=== PATIENT | female | born 1955 | race Asian ===

== ENCOUNTER 2017-05-02 13:22 | Inpatient (IN) | payer BC, OTHER ==
[~2017-05-02] VITALS: Ht 162.6 cm; Wt 78.0 kg
--- NOTE | 2017-05-02 15:35 | ERA ---
ER Documentation Chief Complaint Date/Time DATE: 05/02/17 TIME: 15:34 Chief Complaint Chest pain and shortness of breath HPI . The patient is 62-year-old female, presenting to the ER because of shortness of breath and substernal chest pain intermittently for the last 3 months, worse for the last couple days She was seen by her physician today who sent her to the ER because of abnormal EKG. There is no aggravating or relieving factor, she denies chest pain with exertion/vomiting/diaphoresis, abdominal pain, vomiting, dysuria, diarrhea. She does not smoke nor drink Past medical history: Dyslipidemia Past surgical history: Hysterectomy, abdominoplasty, breast augmentation ROS All systems reviewed and are negative except as per history of present illness. Medications Home Meds No Active Prescriptions or Reported Meds Allergies Allergies: Coded Allergies: No Known Allergy (Unverified , 05/02/17) PMhx/Soc History of Surgery: Yes (HYSTERECTOMY) Anesthesia Reaction: No Hx Neurological Disorder: No Hx Respiratory Disorders: No Hx Cardiac Disorders: No Hx Psychiatric Problems: No Hx Miscellaneous Medical Probl: No Hx Alcohol Use: No Hx Substance Use: No Hx Tobacco Use: No Physical Exam Vitals Vital Signs Date Time Temp Pulse Resp B/P Pulse Ox O2 Delivery O2 Flow Rate FiO2 05/02/17 17:47 98.4 70 18 142/80 99 Room Air 05/02/17 17:41 Nasal Cannula 2 05/02/17 16:43 68 18 150/71 99 Room Air 05/02/17 13:27 98.1 88 18 180/80 99 Physical Exam Const: No acute distress. Head: Atraumatic. Eyes: Normal Conjunctiva. ENT: Normal External Ears, Nose and Mouth. Neck: Full range of motion. No meningismus. Resp: Clear to auscultation bilaterally. Cardio: Regular rate and rhythm. Abd: Soft, non distended, normal bowel sounds, non tender. Skin: No petechiae or rashes. Back: No midline or flank tenderness. Ext: No cyanosis, or edema. Neur: Awake and alert. No focal deficit Psych: Normal Mood and Affect. Result Diagram: 05/02/17 1550 05/02/17 1550 Results 24 hrs Laboratory Tests Test 05/02/17 15:50 White Blood Count 5.810^3/ul Red Blood Count 4.7810^6/ul Hemoglobin 14.3g/dl Hematocrit 43.5% Mean Corpuscular Volume 91.0fl Mean Corpuscular Hemoglobin 29.9pg Mean Corpuscular Hemoglobin Concent 32.9g/dl Red Cell Distribution Width 13.2% Platelet Count 15877^3/UL Mean Platelet Volume 9.6fl Neutrophils % 44.2% Lymphocytes % 39.7% Monocytes % 13.4% Eosinophils % 1.9% Basophils % 0.3% Nucleated Red Blood Cells % 0.0/100WBC Neutrophils # 2.510^3/ul Lymphocytes # 2.310^3/ul Monocytes # 0.810^3/ul Eosinophils # 0.110^3/ul Basophils # 0.010^3/ul Nucleated Red Blood Cells # 0.010^3/ul Prothrombin Time 12.4Sec Prothrombin Time Ratio 1.0 INR International Normalized Ratio 0.92 Activated Partial Thromboplast Time 31.6Sec D-Dimer 376.29ng/ml D-Dimer Comment Sodium Level 145mmol/L Potassium Level 4.0mmol/L Chloride Level 109mmol/L Carbon Dioxide Level 27mmol/L Anion Gap 13 Blood Urea Nitrogen 16mg/dl Creatinine 0.66mg/dl Glucose Level 87mg/dl Calcium Level 10.3mg/dl Troponin I < 0.012ng/ml B-Type Natriuretic Peptide 72PG/ML Current Medications Medications (Trade) Dose Ordered Sig/Nataly Route PRN Reason Start Time Stop Time Status Last Admin Dose Admin Aspirin (Aspirin) 325 mg ONCE ONCE PO 05/02/17 17:30 05/02/17 17:31 DC 05/02/17 17:24 Nitroglycerin (Nitroglycerin 2% Oint) 1 inch ONCE ONCE TD 05/02/17 17:30 05/02/17 17:31 DC 05/02/17 17:24 Procedures/[place] [id number] Radiology Main Line: [phone] DIAGNOSTIC IMAGING REPORT Patient: SHARMAINE DAMON : 1955 Age: 62 Sex: F MR #: [id number] DOS: 05/02/17 1547 Ordering MD: LAVON CUNNINGHAM MD Location: E/R Room/Bed: PROCEDURE: XR Chest. CLINICAL INDICATION: Shortness of breath TECHNIQUE: Single frontal chest x-ray. COMPARISON: None available FINDINGS: The lungs are clear. No focal opacification is seen. No pneumothorax or pleural effusion is seen. The cardiomediastinal silhouette is unremarkable. The osseous structures are grossly unremarkable. IMPRESSION: No evidence of acute cardiopulmonary disease. RPTAT: JJ .Eliud Frost MD, MD Date Time Electronically viewed and signed by .Eliud Frost MD, on 05/02/2017 16:58 .A/ CC: LAVON CUNNINGHAM MD EKG: At 1327 hrs. Read by emergency physician Rate/Rhythm: Normal Sinus Rhythm 72 beats/min QRS, ST, T-waves: No ST elevation, Inferolateral T abnormality Impression: Abnormal EKG EKG: At 1701 hrs. Read by emergency physician Rate/Rhythm: Normal Sinus Rhythm 61 beats/min QRS, ST, T-waves: No ST elevation, Inferolateral T abnormality Impression: Abnormal EKG MEDICAL MAKING DECISION: The patient is a 62-year-old female, presenting with acute chest pain of unclear etiology with abnormal EKG that is concerning for acute ACS. She was treated with aspirin 325 mg p.o., 1 inch of nitroglycerin ointment to the chest wall with good response The differential diagnoses considered include but are not limited to acute coronary syndrome, acute myocardial infarction, pericarditis, pulmonary embolism , aortic dissection, pneumonia, pleural effusion, pneumothorax, GERD, chest wall pain. Departure Diagnosis: Primary Impression: Chest pain Condition: Stable Comments I discussed the findings with the patient. I discussed the patient with her physician Dr. Verde who was made aware of the lab, the treatment, the patient condition. The patient is admitted to [facility] at 5:30 pm The patient's blood pressure was elevated (>120/80) but appears stable without evidence of hypertension emergency or urgency. The patient was counseled about the risks of hypertension and urged to pursue outpatient monitoring and therapy within a week with their primary care physician. LAVON CUNNINGHAM MD May 02, 2017 15:35
[2017-05-02 16:02] LABS: BASOPHILS % 0.3 % (0.0-2.0); EOSINOPHILS # 0.1 10^3/ul (0.0-0.5); EOSINOPHILS % 1.9 % (0.0-7.0); HEMATOCRIT 43.5 % (37.0-47.0); HEMOGLOBIN 14.3 g/dl (12.0-16.0); LYMPHOCYTES # 2.3 10^3/ul (0.8-2.9); LYMPHOCYTES % 39.7 % (15.0-51.0); MEAN CORPUSCULAR HEMOGLOBIN 29.9 pg (29.0-33.0); MEAN CORPUSCULAR HGB CONC 32.9 g/dl (32.0-37.0); MEAN PLATELET VOLUME 9.6 fl (7.4-10.4); MONOCYTE # 0.8 10^3/ul (0.3-0.9); MONOCYTES % 13.4 % (0.0-11.0); NEUTROPHIL # 2.5 10^3/ul (1.6-7.5); NEUTROPHILS % 44.2 % (39.0-77.0); PLATELET COUNT 279 10^3/UL (140-415); RED BLOOD COUNT 4.78 10^6/ul (4.20-5.40); RED CELL DISTRIBUTION WIDTH 13.2 % (11.5-14.5); WHITE BLOOD COUNT 5.8 10^3/ul (4.8-10.8)
[2017-05-02 16:19] LABS: INR 0.92; PROTIME 12.4 Sec (12.2-14.2)
[2017-05-02 16:20] LABS: ANION GAP 13 (8-16); BLOOD UREA NITROGEN 16 mg/dl (7-20); CALCIUM 10.3 mg/dl (8.4-10.2); CARBON DIOXIDE 27 mmol/L (21-31); CHLORIDE 109 mmol/L (97-110); CREATININE 0.66 mg/dl (0.44-1.00); GLUCOSE 87 mg/dl (70-220); PARTIAL THROMBOPLASTIN TIME 31.6 Sec (25.0-35.0); SODIUM 145 mmol/L (135-144)
[2017-05-02 16:28] LABS: D-DIMER 376.29 ng/ml (<460)
[2017-05-02 16:33] LABS: B-TYPE NATRIURETIC PEPTIDE 72 PG/ML (0-125); TROPONIN-I < 0.012 ng/ml (0.00-0.12)
--- NOTE | 2017-05-02 16:58 | RADRPT ---
PROCEDURE: XR Chest. CLINICAL INDICATION: Shortness of breath TECHNIQUE: Single frontal chest x-ray. COMPARISON: None available FINDINGS: The lungs are clear. No focal opacification is seen. No pneumothorax or pleural effusion is seen. The cardiomediastinal silhouette is unremarkable. The osseous structures are grossly unremarkable. IMPRESSION: No evidence of acute cardiopulmonary disease. RPTAT: JJ .Eliud Frost MD, MD Date Time Electronically viewed and signed by .Eliud Frost MD, on 05/02/2017 16:58 .A/
[2017-05-02] MEDS ORDERED: NITROGLYCERIN 2% 1 GM OINT PKT TD ONE (17:30)
[2017-05-02] MEDS ORDERED: ASPIRIN 325 MG TAB PO ONE (17:30)
[2017-05-02] MEDS ORDERED: morphine 2 MG INJ IV PRN (21:00)
[2017-05-02] MEDS ORDERED: ONDANSETRON 4 MG INJ IV PRN (21:00)
[2017-05-02] MEDS ORDERED: ACETAMINOPHEN 325 MG TAB PO PRN (21:00)
[2017-05-02 22:50] VITALS: TEMP 98.4
[2017-05-03] VITALS (8 sets, daily range): BP systolic 107–123; BP diastolic 55–63; PULSE 69–79; RESP 16–18; Ht 162.6 cm; Wt 78.0 kg
[2017-05-03] MEDS: ATORVASTATIN 40 MG TAB PO SCH ×2 (01:15→09:00)
--- NOTE | 2017-05-03 04:57 | HP ---
DATE OF ADMISSION: 05/02/2017 CHIEF COMPLAINT: Shortness of breath. HISTORY OF PRESENTING ILLNESS: The patient presents to the emergency room at [facility] shortness of breath which she states has been on and off for the last several months, that this o ccurs to her when she is walking or when she gets angry and is affiliated with some central chest ti ghtness and increasing fatigue. PAST MEDICAL HISTORY: Significant for hypertension. MEDICATIONS: As an outpatient, nil. ALLERGIES: Nil. SOCIAL HISTORY: The patient lives at home in [place] with her friend. Independent of activities of daily living, continues to drive. Works running a [employer], does not use a cane or walker. FAMILY HISTORY: Noncontributory. REVIEW OF SYSTEMS: Five systems reviewed and found not to be revealing. PHYSICAL EXAMINATION: VITAL SIGNS: Reviewed and showed slight hypertension. GENERAL: Pleasant woman in no acute distress, alert and oriented x3. HEENT: Normocephalic, atraumatic without evident scleral icterus, perioral cyanosis. Mucous membra garett are moist. NECK: Soft and supple without masses. No evidence of jugular venous distention or carotid bruits. CHEST: Clear to auscultation and percussion bilaterally. HEART: Regular rate and rhythm. S1, S2. No added sounds. ABDOMEN: Soft, nontender, nondistended without palpable hepatosplenomegaly. EXTREMITIES: Without clubbing, cyanosis or edema. SKIN: Without rashes. NEUROLOGIC: Grossly intact. LABORATORY STUDIES: Reviewed and remarkable for negative troponin. Chest x-ray is normal. EKG rev eals sinus rhythm with T-wave inversions in II, III, aVF, V4, 5 and 6. ASSESSMENT AND PLAN: 1. Cardiac: The patient with chest pain and shortness of breath, unclear etiology. Obtain serial troponins, echocardiogram and stress test. We will wait for the results. 2. Prophylaxis with TEDs and sequential compression devices. Dictated By: YISEL HERNANDEZ MD RER/NTS Conf#: [id number] DID#: [id number]
[2017-05-03] MEDS ORDERED: ASPIRIN 81 MG TAB PO SCH (09:00)
[2017-05-03 09:42] LABS: CHOL/HDL RATIO 6.8 RATIO
--- NOTE | 2017-05-03 10:50 | PN ---
Date/Time of Note Date/Time of Note DATE: 05/03/17 TIME: 10:39 Assessment/Plan VTE Prophylaxis VTE Prophylaxis Intervention: SCD's Assessment/Plan Assessment/Plan 62 yo female with: 1. Chest pain and SOB, CE negative and EKG with no acute ischemic changes. D Dimer wnl Stress test this AM and 2D echo ordered, results pending On RA and stable Continue ASA, B block and statins 2. Hyperlipidemia: agree with Lipitor Prophylaxis; DVT ppx with sequential compression devices and Pepcid for GI ppx Disposition: D/c home if stress test negative. Subjective 24 Hr Interval Summary Free Text/Dictation Patient doing well and No chest pain but complaining of HENNESSY Stress test today and 2D echo D/c plan home if negative stress test Exam/Review of Systems Vital Signs Vitals Vital Signs Date Time Temp Pulse Resp B/P Pulse Ox O2 Delivery O2 Flow Rate FiO2 05/03/17 09:20 98.6 75 18 111/63 96 Room Air 05/02/17 17:41 2 Exam Constitutional: alert, oriented, well developed Respiratory: clear to auscultation, normal air movement Cardiovascular: nl pulses, regular rate and rhythm Gastrointestinal: non-tender, soft Musculoskeletal: nl extremities to inspection Extremities: normal pulses Neurological: [employer] COMM[employer]ION[employer] II-XII intact, nl mental status, nl speech, nl strength Results Result Diagram: 05/02/17 1550 05/02/17 1550 Results 24 hrs Laboratory Tests Test 05/02/17 15:50 05/02/17 21:47 05/03/17 05:44 White Blood Count 5.8 Red Blood Count 4.78 Hemoglobin 14.3 Hematocrit 43.5 Mean Corpuscular Volume 91.0 Mean Corpuscular Hemoglobin 29.9 Mean Corpuscular Hemoglobin Concent 32.9 Red Cell Distribution Width 13.2 Platelet Count 279 Mean Platelet Volume 9.6 Neutrophils % 44.2 Lymphocytes % 39.7 Monocytes % 13.4 H Eosinophils % 1.9 Basophils % 0.3 Nucleated Red Blood Cells % 0.0 Neutrophils # 2.5 Lymphocytes # 2.3 Monocytes # 0.8 Eosinophils # 0.1 Basophils # 0.0 Nucleated Red Blood Cells # 0.0 Prothrombin Time 12.4 Prothrombin Time Ratio 1.0 INR International Normalized Ratio 0.92 Activated Partial Thromboplast Time 31.6 D-Dimer 376.29 D-Dimer Comment Sodium Level 145 H Potassium Level 4.0 Chloride Level 109 Carbon Dioxide Level 27 Anion Gap 13 Blood Urea Nitrogen 16 Creatinine 0.66 Glucose Level 87 Calcium Level 10.3 H Troponin I < 0.012 < 0.012 < 0.012 B-Type Natriuretic Peptide 72 Triglycerides Level 131 Cholesterol Level 245 H LDL Cholesterol, Calculated 183 HDL Cholesterol 36 Cholesterol/HDL Ratio 6.8 Medications Medications Current Medications Aspirin (Aspirin) 81 mg DAILY PO Last administered on 05/03/17 09:19; Admin Dose 81 MG; Start 05/03/17 at 09:00 Carvedilol (Coreg) 6.25 mg Q12 PO Last administered on 05/03/17 09:19; Admin Dose 6.25 MG; Start 05/02/17 at 21:00 Hydralazine HCl (Apresoline) 25 mg Q6H PRN PO sbp>160; Start 05/02/17 at 21:00 Atorvastatin Calcium (Lipitor) 40 mg DAILY PO ; Start 05/02/17 at 21:00 Acetaminophen (Tylenol Tab) 650 mg Q4H PRN PO pain/fever; Start 05/02/17 at 21 :00 Morphine Sulfate (morphine) 2 mg Q2H PRN IV pain Last administered on 00:26; Admin Dose 2 MG; Start 05/02/17 at 21:00 Ondansetron HCl (Zofran Inj) 4 mg Q4H PRN IV nausea Last administered on 00:26; Admin Dose 4 MG; Start 05/02/17 at 21:00 JESÚS ROCHE May 03, 2017 10:50
[2017-05-03] MEDS ORDERED: REGADENOSON 0.4 MG/5 ML SYG ONE (11:10)
--- NOTE | 2017-05-03 12:38 | RADRPT ---
Echocardiogram Report Patient Name: SHARMAINE DAMON Gender: Female Date: 1955 Study Date: 03-May-2017 Manipulative Therapy Specialist: Perla [facility] Location: [facility] Ref. Physician: YISEL HERNANDEZ Quality: Adequate Procedures: Transthoracic echocardiogram with complete 2D, M-Mode, and doppler examination. Indications: Chest Pain. 2D/M Mode Doppler Measurement Value Normal Ranges Measurement Value Normal Ranges LVIDd 2D 3.8 3.5 - 5.6 cm AV Peak Lexx 1.3 m/sec LVIDs 2D 2.3 2.1 - 4.1 cm AV Peak PG 7.0 mmHg FS 2D 39.8 % LVOT Peak Lexx 1.1 m/sec LVPWd 2D 1.3 0.6 - 1.1 cm LVOT Peak PG 5.0 mmHg IVSd 2D 1.3 0.6 - 1.1 cm MV E Peak Lexx 0.6 m/sec IVS/LVPW 2D 1.0 MV A Peak Lexx 0.9 m/sec AoR Diam 2D 2.8 2.0 - 3.7 cm MV E/A 0.6 LA/Ao 2D 1 0 - 1 MV Decel Time 222 msec EDV 2D 54.4 cm3 MV E/A 0.6 ESV 2D 11.9 cm3 TR Peak Lexx 2.5 m/sec LA Dimen 2D 3.7 2.3 - 4.0 cm TR Peak PG 24.0 mmHg RVSP 27.0 mmHg Findings Left Ventricle: Normal left ventricular systolic function. Normal left ventricular cavity size. Moderate concentric left ventricular hypertrophy. Ejection fraction is visually estimated at 65 %. Tissue Doppler/Mitral Doppler indices are consistent with impaired relaxation (Stage I diastolic dysfunction). Right Ventricle: Normal right ventricular size. Normal right ventricular systolic function. Left Atrium: The left atrium is normal in size. Right Atrium: The right atrium is normal in size. Mitral Valve: Normal appearance and function of the mitral valve with trace physiologic regurgitation. Aortic Valve: Normal appearance of the aortic valve. No significant aortic stenosis or insufficiency. Tricuspid Valve: Normal appearance and function of the tricuspid valve with trace physiologic regurgitation. Estimated peak PA systolic pressure 27 mmHg. Pulmonic Valve: Pulmonic valve not well visualized. There is trace pulmonic regurgitation. Pericardium: Normal pericardium with no significant pericardial effusion. Aorta: Normal aortic root. IVC: Normal size and normal respiratory collapse consistent with normal right atrial pressure. Conclusions 1.Normal left ventricular systolic function. Normal left ventricular cavity size. Moderate concentric left ventricular hypertrophy. Ejection fraction is visually estimated at 65 %. Tissue Doppler/Mitral Doppler indices are consistent with impaired relaxation (Stage I diastolic dysfunction). 2.Normal right ventricular size. Normal right ventricular systolic function. 3.The left atrium is normal in size. 4.The right atrium is normal in size. 5.No significant valvular stenosis or regurgitation seen. 6.Normal pericardium with no significant pericardial effusion. Electronically Signed By: Sanya Fonseca 03-May-2017 12:37:56 -0700 Patient Name: SHARMAINE DAMON Study Date: 03-May-[id number]
--- NOTE | 2017-05-03 14:32 | RADRPT ---
PROCEDURE: Lexiscan myocardial perfusion study CLINICAL INDICATION: 62 -year-old patient complaining of chest pain. TECHNIQUE: Lexiscan 0.4 mg intravenously separate acquisition gated myocardial perfusion SPECT usi ng Tc 99m Myoview 27.2 mCi intravenously at stress and Tc-99m Myoview, 9.2 mCi intravenously at rest was performed using the rest/stress sequence. Poststress Myoview SPECT images were obtained in the supine position. COMPARISON: No prior studies. FINDINGS: Perfusion images reveal no evidence of perfusion defects. Lexiscan post stress gated SPECT images demonstrate no wall motion abnormalities. IMPRESSION: 1. Normal study with no evidence of perfusion defects or wall motion abnormalities. 2. The left ventricle ejection fraction at stress is greater than 70%. A call report was made to Dr. Fonseca at 02:30 p.m. on May 03, 2017. RPTAT: HH .Serenity Medina MD, MD Date Time Electronically viewed and signed by .Serenity Medina MD, MD on 05/03/2017 14:31 .L/
[2017-05-03] MEDS ORDERED: ASPI81TA3 PO (14:43)
[2017-05-03] MEDS ORDERED: ATOR40TA68 PO (14:43)
--- NOTE | 2017-05-03 14:43 | PDOCDIS ---
Discharge Instructions CONDITION Patient Condition: Good HOME CARE INSTRUCTIONS: Diet Instructions: Low Fat /Cholesterol ACTIVITY: Activity Restrictions: No Restrictions FOLLOW UP/APPOINTMENTS Follow-up Plan followup with PCP within 1 week JESÚS ROCHE May 03, 2017 14:42
[2017-05-03] MEDS ORDERED: METO25TA4 PO (14:46)
--- NOTE | 2017-05-03 16:14 | CONS ---
Date/Time of Note Date/Time of Note DATE: 05/03/17 TIME: 16:11 Assessment/Plan Assessment/Plan Additional Assessment/Plan Chest pain and shortness of breath Abnormal ECG Preserved ejection fraction -Patient with symptoms of shortness of breath sometimes at rest and sometimes with exertion as well as chest discomfort when she becomes upset or angry. Ejection fraction is preserved on echocardiogram but of concern is T-wave inversion seen on ECG. Given the above, agree with proceeding with nuclear cardiac perfusion study. Consultation Date/Type/Reason Admit Date/Time May 02, 2017 at 19:37 Type of Consultation: cv Reason for Consultation Chest pain and shortness of breath Hx of Present Illness This is a 62-year-old female with past medical history of dyslipidemia who presents with symptoms of chest pain and shortness of breath. Patient does complain of intermittent symptoms of shortness of breath at times with exertion at times at rest. She most recently has been having complaints of chest discomfort when she becomes upset or angry. She denies chest discomfort with activity. Because of worsening symptoms, she came to the emergency room further evaluation care. She currently denies any chest pain or shortness of breath. 12 point review of systems was performed with all pertinent positives and negatives mentioned above and all else negative Past Medical History Medical History: high cholesterol Family History Significant Family History: no pertinent family hx Social History Smoking Status: Never smoker Exam/Review of Systems Vital Signs Vitals Vital Signs Date Time Temp Pulse Resp B/P Pulse Ox O2 Delivery O2 Flow Rate FiO2 05/03/17 15:40 98.2 77 18 123/59 97 Room Air 05/02/17 17:41 2 Exam No apparent distress Constitutional: alert, oriented Head: normocephalic Respiratory: other (Coarse breath sounds bilaterally, no wheezing) Cardiovascular: other (S1-S2 heard), regular rate and rhythm Gastrointestinal: bowel sounds, non-tender, soft Extremities: other (No edema) Results Result Diagram: 05/02/17 1550 05/02/17 1550 Results 24 hrs Laboratory Tests Test 05/02/17 21:47 05/03/17 05:44 Troponin I < 0.012 < 0.012 Triglycerides Level 131 Cholesterol Level 245 H LDL Cholesterol, Calculated 183 HDL Cholesterol 36 Cholesterol/HDL Ratio 6.8 Medications Medications Current Medications Aspirin (Aspirin) 81 mg DAILY PO Last administered on 05/03/17t 09:19; Admin Dose 81 MG; Start 05/03/17 at 09:00 Hydralazine HCl (Apresoline) 25 mg Q6H PRN PO sbp>160; Start 05/02/17 at 21:00 Atorvastatin Calcium (Lipitor) 40 mg DAILY PO ; Start 05/02/17 at 21:00 Acetaminophen (Tylenol Tab) 650 mg Q4H PRN PO pain/fever; Start 05/02/17 at 21 :00 Morphine Sulfate (morphine) 2 mg Q2H PRN IV pain Last administered on 00:26; Admin Dose 2 MG; Start 05/02/17 at 21:00 Ondansetron HCl (Zofran Inj) 4 mg Q4H PRN IV nausea Last administered on 00:26; Admin Dose 4 MG; Start 05/02/17 at 21:00 Metoprolol Tartrate (Lopressor) 25 mg BID PO ; Start 05/03/17 at 21:00 Procedures Procedures ECG with sinus rhythm at 64 bpm, inferior and lateral T-wave inversions Sanya Fonseca DO May 03, 2017 16:14
[2017-05-03] MEDS ORDERED: METOPROLOL 25 MG TAB PO SCH (21:00)
--- NOTE | 2017-05-05 15:39 | EN ---
Date/Time of Note Date/Time of Note DATE: 05/05/17 TIME: 15:36 Event Note Cardiology Cardiology Event Note 05/03/17 Lexiscan ECG Report 62 y/o female with chest pain Baseline ECG SR @64bpm, T wave inversions BP: 126/67 Lexiscan administered as per protocol Symptoms of shortness of breath, hypotension and dizziness which resolved in recovery Peak BP 127/60 ECG: no significant changes Arrhythmia: none ECG interpretation: Non-ischemic Sanya Fonseca DO May 05, 2017 15:39
== END 2017-05-03 16:18 | disposition home or self-care (01) | DRG 313 ==
LOC: E/R 13:22 → MS3 19:37
PROVIDERS: ADMIT Family Medicine; ATTEND Family Medicine
DX: R07.9 Chest pain, unspecified (principal); I10 Essential (primary) hypertension; R06.02 Shortness of breath; E78.5 Hyperlipidemia, unspecified; Z90.710 Acquired absence of both cervix and uterus
CPT/HCPCS: 36415; 71010; 78452; 80048; 80061; 83880; 84484; 85025; 85378; 85610; 85730; 93017; 93306; 96374; 96375; A9500; A9505; J2270; J2405; J2785

== ENCOUNTER 2019-01-17 07:21 | Day surgery (SDC) | payer OTHER ==
[~2019-01-17] VITALS: Ht 157.5 cm; Wt 62.9 kg
[~2019-01-17 07:21] MED LIST: ASPI-831 PO; ATOR40TA68 PO; METO25TA4 PO
[2019-01-17 08:06] VITALS: Ht 157.5 cm; Wt 62.9 kg
[2019-01-17] MEDS ORDERED: METO25TA4 PO (08:12)
[2019-01-17 09:02] VITALS: BP 131/59; PULSE 65; RESP 18
[2019-01-17] MEDS ORDERED: LIDOCAINE 2% (SDV) 5 ML INJ ONE (09:32)
[2019-01-17] MEDS ORDERED: PROPOFOL 60 ML ONE (09:32)
--- NOTE | 2019-01-17 09:32 | PREAC ---
Date/Time of Note Date/Time of Note DATE: 01/17/19 TIME: 09:29 Anesthesia Eval and Record Evaluation Time Pre-Procedure Interview DATE: 01/17/19 TIME: 09:29 Age 63 Sex female NPO: 8 hrs Preoperative diagnosis Reflux , Colon screening Planned procedure EGD, Colonoscopy Past Medical History Past Medical History: Includes Cardio: HTN, Dyslipidemia GI: Obesity Surgery & Anesthesia Issues No known issue Meds Anticoagulation: No Beta Linn within 24 hr: Yes Reported Medications Metoprolol Tartrate* (Lopressor*) 25 Mg Tablet, 25 MG PO BID, #60 TAB 01/17/19 Discontinued Scripts Metoprolol Tartrate* (Lopressor*) 25 Mg Tablet, 25 MG PO BID, #60 TAB 3 Refills Prov:KALEYCortneyLanceMEREDITHJAY Headley 05/03/17 Atorvastatin* (Atorvastatin*) 40 Mg Tablet, 40 MG PO DAILY for 30 Days, TAB 3 Refills Prov:KALEYCortneyLanceMEREDITHJAY Headley 05/03/17 Aspirin (Aspirin) 81 Mg Chew, 81 MG PO DAILY for 30 Days, TAB 3 Refills Prov:KALEYCortneyLanceMEREDITHJAY Headley 05/03/17 Meds reviewed: Yes Allergies Coded Allergies: No Known Allergy (Unverified , 05/02/17) Allergies Reviewed: Yes Labs/Studies Labs Reviewed: Reviewed by anesthesiologist test: N/A Studies: ECG Pre-procedure Exam Last vitals Vital Signs Date Temp Pulse Resp B/P (MAP) Pulse Ox O2 O2 Flow FiO2 Time Delivery Rate 01/17/19 98.3 65 18 131/59 97 Room Air 09:02 (83) Airway: Adequate mouth opening, Adequate thyromental dist Mallampati: Mallampati II Teeth: Normal Lung: Normal Heart: Normal ASA Physical Status ASA physical status: 3 Emergency: None Planned Anesthetic General/MAC: MAC Planned Pain Management Parenteral pain med Pre-operative Attestations Prior to commencing anesthesia and surgery, the patient was re-evaluated, there was verification of: *The patient's identity *The results of appropriate recent lab work and preoperative vital signs *The above evaluation not changing prior to induction *Anesthetic plan, risk benefits, alternative and complications discussed with patient/family; questions answered; patient/family understands, accepts and wishes to proceed. DEEDEE POSEY MD Jan 17, 2019 09:32
--- NOTE | 2019-01-17 10:24 | PAC ---
Date/Time of Note Date/Time of Note DATE: 01/17/19 TIME: 10:23 Post-Anesthesia Notes Post-Anesthesia Note Last documented vital signs Vital Signs Date Temp Pulse Resp B/P (MAP) Pulse Ox O2 O2 Flow FiO2 Time Delivery Rate 01/17/19 98.3 65 18 131/59 97 Room Air 09:02 (83) Activity: WNL Respiratory function: WNL Cardiovascular function: WNL Mental status: Baseline Pain reasonably controlled: Yes Hydration appropriate: Yes Nausea/Vomiting absent: Yes Comments BP:112/56, P:78, Spo2:100%, T:98,8 DEEDEE POSEY MD Jan 17, 2019 10:24
[2019-01-17 10:31] VITALS: BP 117/56; PULSE 68; RESP 18
== END 2019-01-17 11:15 | disposition home or self-care (01) ==
LOC: GIL 07:21
PROVIDERS: ATTEND Internal Medicine Gastroenterology
DX: Z12.11 Encounter for screening for malignant neoplasm of colon (principal); K64.8 Other hemorrhoids; D12.5 Benign neoplasm of sigmoid colon; D12.0 Benign neoplasm of cecum; K44.9 Diaphragmatic hernia without obstruction or gangrene; K21.9 Gastro-esophageal reflux disease without esophagitis; K31.7 Polyp of stomach and duodenum; E78.5 Hyperlipidemia, unspecified; I10 Essential (primary) hypertension; Z79.82 Long term (current) use of aspirin
CPT/HCPCS: 88305; 88312